=== PATIENT | male | born 1950 | race Caucasian/White ===

== ENCOUNTER → 2017-03-02 | Outpatient (CLI) | payer MEDICARE, OTHER ==
[~2017-03-02] MED LIST: ASPIRIN 32325 MG/TA1 PO; ASPIRIN E.C. 8181 MG PO; BRILINTA90 MG PO; EFFEXOR XR75 MG/CAP PO; LIPITOR 80MG80 MG PO; LOPRESSOR 550 MG/TAB PO; TOPAMAX50 MG PO; ZESTRIL 5MG5 MG PO; ZOCOR 20MG20 MG PO
== END ==
LOC: COL.RAD 15:57
DX: T14.8 Other injury of unspecified body region (principal); Z79.01 Long term (current) use of anticoagulants
CPT/HCPCS: Q9967

== ENCOUNTER 2024-02-22 18:10 | Emergency (ER) | payer MEDICARE, OTHER ==
[~2024-02-22] VITALS: Ht 172.7 cm; Wt 100.0 kg
[2024-02-22 18:30] LABS: BASO % 0.5 % (0.0-2.0); EOS # 0.3 K/mm3 (0.0-0.7); EOS % 3.7 % (0.0-4.0); GRAN % 59.5 % (42.2-75.2); HEMATOCRIT 44.5 % (42.0-52.0); HEMOGLOBIN 14.7 g/dl (13.5-18.0); LYMPH # 2.1 K/mm3 (1.2-3.4); LYMPH % 24.4 % (20.0-51.0); MEAN CELL VOLUME 92 fl (80.0-100.0); MEAN CORPUSCULAR HEMOGLOBIN 31 pg (27-31); MEAN CORPUSCULAR HGB CONC 33 g/dl (33.0-37.0); MEAN PLATELET VOLUME 10.3 fl (7.4-10.4); MONO % 11.4 % (1.7-9.3); PLATELET COUNT 197 K/mm3 (130-400); RED BLOOD COUNT 4.82 M/mm3 (4.20-5.60)
[2024-02-22] MEDS ORDERED: dilTIAZem 25 MG/5 ML VIAL IV ONE (18:30)
[2024-02-22] MEDS ORDERED: PRINIVIL5 MG PO (18:33)
[2024-02-22] MEDS ORDERED: EFFEXOR 3737.5 MG/TA PO (18:34)
[2024-02-22] MEDS ORDERED: EFFEXOR-XR150 MG PO (18:34)
[2024-02-22 18:35] LABS: INR 1.2 (0.8-3.0); PROTHROMBIN TIME 13.4 SECONDS (9.7-12.8)
[2024-02-22] MEDS ORDERED: AMBIEN 10MG10 MG PO (18:35)
[2024-02-22] MEDS ORDERED: FLOMAX 0.40.4 MG/CAP PO (18:35)
[2024-02-22] MEDS ORDERED: CRESTOR40 MG PO (18:36)
[2024-02-22] MEDS ORDERED: PROAIR HFA0.09 MG/AC IH (18:36)
[2024-02-22] MEDS ORDERED: ELIQUIS 5MG PO (18:36)
[2024-02-22] MEDS ORDERED: NITROSTAT0.4 MG/TAB SL (18:36)
[2024-02-22 18:38] LABS: PARTIAL THROMBOPLASTIN TIME 32.9 SECONDS (26.0-37.0)
[2024-02-22 18:55] LABS: ALANINE AMINOTRANSFERASE 26 U/L (0-55); ALBUMIN 3.7 g/dL (3.4-4.8); ALKALINE PHOSPHATASE 91 U/L (40-150); ANION GAP 9 mmol/L (7-16); AST,SGOT 24 U/L (5-34); BLOOD UREA NITROGEN 30 mg/dL (8-26); CALCIUM 9.3 mg/dL (8.4-10.2); CHLORIDE 108 mEq/L (98-107); CREATININE, serum 1.14 mg/dL (0.72-1.25); GLUCOSE 109 mg/dL (70-99); MAGNESIUM 2.3 mg/dL (1.6-2.6); POTASSIUM 4.3 mEq/L (3.5-4.5); SODIUM 141 mEq/L (136-145); TOTAL PROTEIN 6.7 g/dl (6.2-8.1)
[2024-02-22 19:02] LABS: TROPONIN-I < 0.010 ng/mL (0.00-0.033)
[2024-02-22] MEDS ORDERED: Prothrombin Complex Human 2,000 UNITS in Water For Injection,Sterile 80 ML IV ONE (19:15)
[2024-02-22] MEDS ORDERED: levETIRAcetam 2,000 MG in NS 100 ML IV ONE (19:30)
[2024-02-22 21:15] VITALS: BP 122/94; PULSE 111; TEMP 98.6
[2024-02-22 21:30] VITALS: BP 117/51; PULSE 96; TEMP 98.5
== END 2024-02-22 21:30 | disposition short-term general hospital (02) ==
LOC: COL.ER 18:10
PROVIDERS: Family Medicine
DX: S06.5XAA Traumatic subdural hemorrhage with loss of consciousness status unknown, initial encounter (principal); R55 Syncope and collapse; I48.91 Unspecified atrial fibrillation; Z79.01 Long term (current) use of anticoagulants; W19.XXXA Unspecified fall, initial encounter
CPT/HCPCS: J1953; J7168